=== PATIENT | female | born 1950 | race Caucasian/White ===

== ENCOUNTER → 2017-06-09 12:34 | Outpatient (CLI) | payer MEDICARE ==
[2013-04-20 12:52] VITALS: BMI 27.2
[~2017-06-09 12:34] MED LIST: ASPIRIN EC81 MG; CARAFATE1 G PO; COREG12.5 MG; CYMBALTA20 MG; GLUCOTROL 5 MG T5 MG OR; LASIX40 MG PO; MELATONIN 10 M1 EACH; NEURONTIN 300300 MG PO; NEXIUM40 MG PO; PRAVACHOL20 MG PO; PRINIVIL20 MG PO
== END | disposition home or self-care (01) ==
LOC: D.RAD 12:34
DX: R13.12 Dysphagia, oropharyngeal phase (principal)

== ENCOUNTER 2017-12-23 09:13 | Day surgery (SDC) | payer MEDICARE ==
[~2017-12-23] VITALS: Ht 177.8 cm; Wt 83.2 kg
--- NOTE | ~2017-12-23 | OP ---
PATIENT NAME: RANDY ABDI MEDICAL RECORD: [id number] LOCATION:[facility] ADMISSION DATE: SURGEON: SHAGGY BLANDON DO DATE OF OPERATION: 12/23/2017 PROCEDURE: EGD with biopsies. INDICATIONS FOR PROCEDURE: Dysphagia. SCOPE: Olympus video gastroscope. MEDICATIONS: Propofol 100 mg IV per anesthesia. ESTIMATED BLOOD LOSS: Minimal. COMPLICATIONS: None. FINDINGS: Informed consent was given. The patient was made comfortable with the above medication. After reaching an adequate level of sedation by slow IV push, the patient was placed on her left side. The endoscope was advanced under direct visualization through the mouth to the second portion of the duodenum. The upper, middle, and lower thirds of the esophagus appeared normal. Mid esophageal biopsies were taken with cold forceps to submit for histology and to rule out the presence of eosinophilic esophagitis. At the GE junction, there was some mild LA class A reflux induced esophagitis present. There were no ulcers or erosions. There were no strictures or rings throughout the esophagus. The endoscope was advanced beyond the GE junction into the stomach and retroflexed to view the cardia, which appeared normal. The fundus and stomach body also appeared normal. In the antrum, there was some mild erythema and granularity consistent with possible gastritis. Random biopsies were taken to submit for histopathology and to rule out the presence of H. pylori. The endoscope was advanced beyond the pylorus into the duodenum, where the bulb appeared normal. In the second portion of the duodenum, there was some question of some villi flattening, so random cold forceps biopsies were taken to submit for histology. The endoscope was then withdrawn from the patient. The patient tolerated the procedure well, and there were no complications. IMPRESSION: 1. LA class A reflux-induced esophagitis. 2. Possible gastritis. PLAN AND RECOMMENDATIONS: 1. Discharge home when recovery parameters are met. 2. Follow up biopsy specimen results. 3. Continue GERD diet and reflux precautions. 4. Based on the patient's symptoms of oropharyngeal dysphagia, I will arrange a modified barium swallow to evaluate this further. 5. Continue current medications. TRANSINT:[id number] Voice Confirmation ID: [id number] DOCUMENT ID: [id number] OPERATIVE REPORT [id number] RANDY ABDI SHAGGY BLANDON DO at 1148 CC: [id number] DICTATION DATE: 12/23/17 1235 [employer] OPERATOR: 12/23/17 1355 [facility] 12/23/17 [id number] [place] [address]
[2017-12-23 09:45] LABS: BASOPHILS 0.6 % (0-2); EOSINOPHILS 3.6 % (0-7); HEMATOCRIT 32.8 % (36.0-48.0); IMMATURE GRANULOCYTES 0.2 % (0-5); LYMPHOCYTES 16.1 % (15-50); MCH 25.1 pg (26.0-34.0); MCHC 30.5 g/dL (31.0-37.0); MCV 82.2 fL (80.0-100.0); NEUTROPHILS 72.5 % (40-80); RBC 3.99 10x6/uL (4.00-5.40); RDW 17.8 % (11.5-14.5); WBC 9.5 10x3/uL (4.8-10.8)
[2017-12-23 09:48] LABS: PLATELET COUNT 285 10x3/uL (130-400)
[2017-12-23 09:53] LABS: INR 1.23 (0.85-1.17); PROTIME 15.1 SECONDS (11.6-15.0)
[2017-12-23 09:54] LABS: APTT 28.8 SECONDS (22.8-39.4)
[2017-12-23 10:02] LABS: ANION GAP 13.4 mmol/L (8-16); CALCIUM 8.9 mg/dL (8.5-10.1); CREATININE - SERUM 1.1 mg/dL (0.6-1.3); POTASSIUM - SERUM 5.4 mmol/L (3.5-5.1)
[2017-12-23] MEDS ORDERED: GLUCOPHAGE500 MG PO (11:39)
[2017-12-23] MEDS ORDERED: PEPCID40 MG PO (11:40)
[2017-12-23] MEDS ORDERED: COREG12.5 MG PO (11:42)
[2017-12-23] MEDS ORDERED: CYCLOBENZAPRINE10 MG PO (11:43)
[2017-12-23] MEDS ORDERED: COUMADIN2 MG PO (11:43)
[2017-12-23] MEDS ORDERED: FOLBIC RF TABL1 EACH PO (11:44)
[2017-12-23] MEDS ORDERED: HYDROCODONE-APA1 TAB PO (11:45)
[2017-12-23] MEDS ORDERED: BYDUREON P2 MG/0.65 (11:46)
[2017-12-23] MEDS ORDERED: TRESIBA FL100 UNIT/1 (11:46)
[2017-12-23 11:57] VITALS: BP 142/69; Ht 177.8 cm; Wt 83.2 kg
== END 2017-12-23 13:35 | disposition home or self-care (01) ==
LOC: D.OPS 09:13
PROVIDERS: Anesthesiology
DX: K21.0 Gastro-esophageal reflux disease with esophagitis (principal); R13.10 Dysphagia, unspecified

== ENCOUNTER → 2018-01-05 09:46 | Outpatient (CLI) | payer MEDICARE ==
[2017-12-23 11:57] VITALS: BMI 26.3
[~2018-01-05 09:46] MED LIST changes: +BYDUREON P2 MG/0.65; +COREG12.5 MG PO; +COUMADIN2 MG PO; +CYCLOBENZAPRINE10 MG PO; +FOLBIC RF TABL1 EACH PO; +GLUCOPHAGE500 MG PO; +HYDROCODONE-APA1 TAB PO; +PEPCID40 MG PO; +TRESIBA FL100 UNIT/1
== END | disposition home or self-care (01) ==
LOC: D.RAD 09:30
DX: R13.10 Dysphagia, unspecified (principal)

== ENCOUNTER → 2018-05-27 14:49 | Outpatient (CLI) | payer MEDICARE ==
[2017-12-23 11:57] VITALS: BMI 26.3
[2018-05-27 15:49] LABS: INR 2.29 (0.85-1.17); PROTIME 24.5 SECONDS (11.6-15.0)
== END | disposition home or self-care (01) ==
LOC: D.LABREF 14:49
PROVIDERS: Pediatrics
DX: Z51.81 Encounter for therapeutic drug level monitoring (principal); Z79.01 Long term (current) use of anticoagulants